=== PATIENT | female | born 1940 | race Caucasian/White ===

== ENCOUNTER 2017-11-30 15:24 | Emergency (ER) | payer MEDICARE ==
--- NOTE | 2017-11-30 15:56 | ERNOTE ---
Medical Problem HPI - Narrative Date of Service: 11/30/17 - General Chief Complaint: Fever Time Seen by Provider: 11/30/17 15:39 Source: patient Exam Limitations: no limitations - Immun/Allergies/Home Medications Immunizations: IMMUNIZATION HX History of Influenza Vaccine Yes Allergies/Adverse Reactions: Allergies cortisone [Cortisone] Allergy (Verified 11/30/17 15:37) Hives hydrocodone Allergy (Verified 11/30/17 15:37) oxycodone [Oxycodone] Allergy (Verified 11/30/17 15:37) Home Medications: HOME MEDICATIONS Aspirin [Aspirin Chewable] 81 mg PO DAILY 11/08/14 [Last Taken Unknown] Esomeprazole Magnesium [Nexium] 40 mg PO DAILY 11/08/14 [Last Taken Unknown] Hydrochlorothiazide [Microzide] 12.5 mg PO DAILY 11/08/14 [Last Taken Unknown] Rosuvastatin Calcium [Crestor] 10 mg PO DAILY 11/08/14 [Last Taken Unknown] clonazePAM [Klonopin] 0.5 mg PO DAILY 11/08/14 [Last Taken Unknown] metFORMIN HCL [Glumetza] 1,000 mg PO BID 11/08/14 [Last Taken Unknown] traMADol HCL [Ultram] 50 mg PO QID PRN 11/08/14 [Last Taken Unknown] Albuterol Sulfate [Proair Hfa] 1 - 2 puff IH Q4H PRN #1 inhaler 11/30/17 [Last Taken Unknown] Benzonatate [Tessalon] 200 mg PO TID PRN #30 cap 11/30/17 [Last Taken Unknown] - History of Present History Narrative: Pt is a 76 year old female who presents for a sore throat that started around [place] and has progressively gotten worse. She states on Saturday she developed a fever (~100*F-101*F) which she has been treating with ASA and Brianna- Mcdonald with minimal relief of symptoms. She denies any n/v/d, nasal discharge, ear pain, malaise, CP, or SOB. States that she does have a cough, which is worse at night, however no sputum production. She has been in the hospital visiting other people and last week in the ER with a relative, so she has been around sick contacts, however no confirmed strep or flu cases. Date (Duration): 11/11/17 Timing: getting worse Severity: mild Review of Systems - Review of Systems Constitutional: Present: fever, chills, fatigue. Absent: malaise EYE: Absent: eye discharge ENT: Present: nose congestion, sore throat. Absent: ear pain, ear discharge, nose pain, nasal drainage, throat swelling Respiratory: Present: cough, wheezing. Absent: shortness of breath Cardiology: Absent: chest pain, palpitations, syncope, edema Gastrointestinal/Abdominal: Absent: nausea, vomiting, diarrhea Genitourinary: Absent: frequency, pain, dysuria Musculoskeletal: Absent: muscle stiffness, neck pain, joint pain Skin: Present: no symptoms reported Neurological: Present: no symptoms reported Endocrine: Present: no symptoms reported Hematologic/Lymphatic: Present: no symptoms reported - Patient's Past Medical History Patient History - Medical: Anxiety, Diabetes Type 2, GERD Patient History - Cardiac/Respiratory: Hypertension, Hyperlipidemia Patient History - Cancer: Lymphoma Patient History - Surgical Procedures: Appendectomy, Cholecystectomy, Hysterectomy, Total Knee Replacement, T & A Patient History - Other: None - Social History Living Situations: home Abuse History: No History of abuse Psych History: Hx of Anxiety Alcohol Use: none Drug Use: none - Immunizations History of Influenza Vaccine: Yes Physical Exam - Physical Exam General Appearance: Present: wd/wn, alert, no apparent distress Ears, Nose, Throat: Present: normal ENT inspection, pharyngeal erythema. Absent : pharyngeal swelling, tonsillar swelling, dry mucous membranes Neck: Present: nontender. Absent: lymphadenopathy (R), lymphadenopathy (L) Respiratory: Present: no respiratory distress, no accessory muscle use, chest nontender, decreased breath sounds, wheezing. Absent: lungs clear Cardiovascular/Chest: Present: tachycardia Peripheral Pulses: N=norm/S=strong/W=weak/B=bound/A=absent: Dorsalis-pedis (R): Normal, Dorsalis-pedis (L): Normal Extremity Exam: Present: normal inspection Neurological Exam: Present: alert, oriented, normal mood/affect, no motor/ sensory deficits Skin Exam: Present: normal color, warm/dry ED Progress - Results and Orders Patient's Lab Results:: I have reviewed the patient's lab results. - Vital Signs Patient's Vital Signs:: I have reviewed the patient's vital signs. Vital Signs: Vital Signs 11/30/17 15:29 Temperature 36.0 C L Pulse Rate 107 H Respiratory 12 Rate Blood Pressure 118/50 O2 Sat by Pulse 94 Oximetry - X-Ray X-Ray #1 X-Ray: chest Interpretation: Interp. by me, Reviewed by me X-ray Comments: increased prominence of bronchial trees consistent with acute vs chronic bronchitis - Progress/Reassessment Chief Complaint: Sore Throat Progress:: Improved Departure Clinical Impression: Bronchitis, Cough, Sore throat - Departure Disposition: Home self-care Condition: Good Instructions: Acute Bronchitis, [id number] Additional Instructions: Your xray results does not show any infection. As discussed your strep and flu swabs were negative. Minimize sick contact exposure, maintain good hand hygiene. Increase fluid intake Can take Mucinex as needed to break up chest congestion Can take Iburprofen at night (up to 600mg) to assist with sleeping Try hot tea and honey, cough drops, or salt gargles to assist with sore throat Follow up with PCP if symptoms do not improve or worsen. Referrals: Camelia Perez MD [Primary Care Provider] - Prescriptions: Albuterol Sulfate [Proair Hfa] 1 - 2 puff IH Q4H PRN #1 inhaler PRN Reason: Shortness Of Breath Benzonatate [Tessalon] 200 mg PO TID PRN #30 cap PRN Reason: Croup
[2017-11-30 16:22] VITALS: BP 120/51
== END 2017-11-30 16:31 | disposition home or self-care (01) ==
LOC: ER 15:24
DX: J40 Bronchitis, not specified as acute or chronic (principal); R05 Cough; J02.9 Acute pharyngitis, unspecified; E11.9 Type 2 diabetes mellitus without complications; K21.9 Gastro-esophageal reflux disease without esophagitis; E78.5 Hyperlipidemia, unspecified; I10 Essential (primary) hypertension; F41.9 Anxiety disorder, unspecified; Z85.72 Personal history of non-Hodgkin lymphomas

== ENCOUNTER 2017-12-07 14:59 | Observation (INO) | payer MEDICARE ==
[2017-12-07] MEDS ORDERED: ALBUTEROL SULFATE/IPRATROPIUM 3 ML NEBU IH ONE ×3 (15:28→17:55)
[2017-12-07] MEDS ORDERED: METHYLPREDNISOLONE SOD SUCC/PF 40 MG/ML VIAL IM ONE (15:28)
[2017-12-07] MEDS ORDERED: METHYLPREDNISOLONE SOD SUCC/PF 40 MG/ML VIAL ONE (15:38)
[2017-12-07 15:43] LABS: Hematocrit 34.9 % (37.0-47.0); Hemoglobin 11.1 gm/dL (12.5-16.0); Mean Corpuscular Hemoglobin 25.8 pg (27-31); Mean Corpuscular Hgb Conc 31.8 g/dl (32-36); Mean Platelet Volume 8.8 fl (6.0-9.5); Neutrophil # 15.2 K/mm3 (1.3-6.0); Neutrophil % 84.8 % (42-75.0); Platelet Count 540 K/mm3 (150-450); Red Blood Count 4.31 M/mm3 (4.2-5.4); Red Cell Distribution Width 14.1 % (11.5-14.0); White Blood Count 17.9 K/mm3 (4.0-10.5)
[2017-12-07 16:02] LABS: Albumin * 2.9 gm/dl (3.4-5.0); Anion Gap 13.6 mmol/L (6.8-13.8); BUN/Creatinine Ratio 21.7 (9.0-21.6); Bilirubin, Total 0.3 mg/dL (0.0-1.1); Ca. Corrected For Albumin 10.5 mg/dL (8.4-10.2); Calcium * 9.9 mg/dL (7.9-10.9); Carbon Dioxide 29.4 mmol/L (24-32.6); Total Protein 7.2 gm/dL (6.2-8.2)
--- NOTE | 2017-12-07 16:04 | ERNOTE ---
Medical Problem HPI - Narrative Date of Service: 12/07/17 - General Chief Complaint: Fever Time Seen by Provider: 12/07/17 15:13 Source: patient Exam Limitations: no limitations - Immun/Allergies/Home Medications Immunizations: IMMUNIZATION HX History of Influenza Vaccine Yes Allergies/Adverse Reactions: Allergies cortisone [Cortisone] Allergy (Verified 12/07/17 15:11) Hives hydrocodone Allergy (Verified 12/07/17 15:11) oxycodone [Oxycodone] Allergy (Verified 12/07/17 15:11) Home Medications: HOME MEDICATIONS Aspirin [Aspirin Chewable] 81 mg PO DAILY 11/08/14 [Last Taken Unknown] Esomeprazole Magnesium [Nexium] 40 mg PO DAILY 11/08/14 [Last Taken Unknown] Hydrochlorothiazide [Microzide] 12.5 mg PO DAILY 11/08/14 [Last Taken Unknown] Rosuvastatin Calcium [Crestor] 10 mg PO DAILY 11/08/14 [Last Taken Unknown] clonazePAM [Klonopin] 0.5 mg PO DAILY 11/08/14 [Last Taken Unknown] metFORMIN HCL [Glumetza] 1,000 mg PO BID 11/08/14 [Last Taken Unknown] traMADol HCL [Ultram] 50 mg PO QID PRN 11/08/14 [Last Taken Unknown] Albuterol Sulfate [Proair Hfa] 1 - 2 puff IH Q4H PRN #1 inhaler 11/30/17 [Last Taken Unknown] Benzonatate [Tessalon] 200 mg PO TID PRN #30 cap 11/30/17 [Last Taken Unknown] - History of Present History Narrative: Pt. comes in with c/o increaseing fever, cough, chestcongestion, malaise, and fatigue for a week and a half. Pt. was seen here a week ago and started on tessalon and told to take 600mg of Ibuprofen every 4 hours Pt. was also given albuterol inhaler. Pt. then called her PCP four days ago and was started on Zpak without any relief in symptoms. Pt. denies any CP, NVD, alleviating factors but states that lying flat and cold air exacerbated the symptoms. Timing: getting worse Severity: moderate Modifying Factors - (Improves): Present: other - denies Modifying Factors - (Worsens): Present: cold therapy Review of Systems - Review of Systems Constitutional: Present: fever, chills, weakness, fatigue, malaise EYE: Present: no symptoms reported ENT: Present: no symptoms reported Respiratory: Present: shortness of breath, cough, orthopnea, wheezing Cardiology: Present: no symptoms reported. Absent: chest pain, palpitations, edema Gastrointestinal/Abdominal: Present: no symptoms reported. Absent: nausea, vomiting, diarrhea, abdominal pain Genitourinary: Present: no symptoms reported. Absent: frequency, decreased urinary output Musculoskeletal: Present: no symptoms reported. Absent: back pain, neck pain, joint pain Neurological: Present: no symptoms reported. Absent: headache, dizziness/light- headedness, numbness, tingling All Other Systems: All systems neg except as marked - Patient's Past Medical History Patient History - Medical: Anxiety, Diabetes Type 2, GERD Patient History - Cardiac/Respiratory: Hypertension, Hyperlipidemia Patient History - Cancer: Lymphoma Patient History - Surgical Procedures: Appendectomy, Cholecystectomy, Hysterectomy, Total Knee Replacement, T & A Patient History - Other: None LMP (females 10-50): Menopausal - Social History Living Situations: home Abuse History: No History of abuse Psych History: Hx of Anxiety - Immunizations History of Influenza Vaccine: Yes Physical Exam - Physical Exam General Appearance: Present: wd/wn, alert, no apparent distress Head Exam: Present: normal inspection, no evidence of injury Eye Exam: Normal inspection: bilateral Ears, Nose, Throat: Present: nasal congestion, normal pharynx Neck: Present: normal inspection, nontender, supple, full range of motion. Absent: lymphadenopathy (R), lymphadenopathy (L) Respiratory: Present: no respiratory distress, normal breath sounds, no accessory muscle use, chest nontender, lungs clear. Absent: rales, rhonchi, wheezing Cardiovascular/Chest: Present: regular rate, rhythm, no murmur, normal peripheral pulses Gastrointestinal/Abdominal: Present: normal bowel sounds, nontender, nondistended, soft, no organomegaly Back Exam: Present: normal inspection, normal range of motion, no CVA tenderness , no vertebral tenderness Extremity Exam: Present: normal inspection, non-tender, normal range of motion, no edema Neurological Exam: Present: alert, oriented, normal mood/affect, no motor/ sensory deficits, emergency response coordinator II-XII nml as tested, normal cerebellar test Skin Exam: Present: normal color, warm/dry. Absent: pallor, skin rash ED Progress - Date and Time Seen: Date and Time: 12/07/17 17:[address] Gotti and she acceptd pt for admission with orders for duonebs, levaquin and slow cont. IVF. She states that she does not want steroids for pt. - Results and Orders Patient's Lab Results:: I have reviewed the patient's lab results. - Vital Signs Patient's Vital Signs:: I have reviewed the patient's vital signs. Vital Signs: Vital Signs 12/07/17 15:07 Temperature 37.8 C H Pulse Rate 107 H Respiratory 17 Rate Blood Pressure 125/65 O2 Sat by Pulse 93 Oximetry - X-Ray X-Ray #1 X-Ray: chest Interpretation: Reviewed by me X-ray Comments: worsening BLL pneumonia - Progress/Reassessment Chief Complaint: Fever Departure Clinical Impression: Failure of outpatient treatment Pneumonia Qualifiers: Pneumonia type: due to unspecified organism Laterality: bilateral Lung location : lower lobe of lung Qualified Code(s): J18.9 - Pneumonia, unspecified organism - Departure Disposition: [facility] Condition: Fair
[2017-12-07] MEDS ORDERED: ACETAMINOPHEN 325 MG TABLET PO PRN (17:24)
[2017-12-07] MEDS: ALBUTEROL SULFATE/IPRATROPIUM 3 ML NEBU IH SCH ×2 (18:20→23:13)
[2017-12-07] MEDS: NORMAL SALINE 1,000 ML IV PRN (18:28)
[2017-12-07] MEDS ORDERED: ALBUTEROL SULFATE/IPRATROPIUM 3 ML NEBU IH SCH (19:00)
[2017-12-07] MEDS ORDERED: LEVOFLOXACIN IN DEXTROSE 5 % 750 MG/150 ML BAG IV ONE (19:00)
[2017-12-07 19:02] LABS: Urine Appearance Slightly Cloudy; Urine Bilirubin Negative (NEGATIVE); Urine Blood 10 /ul (NEGATIVE); Urine Color Yellow; Urine Ketone 5 mg/dL (NEGATIVE); Urine Nitrite Negative (NEGATIVE); Urine Protein Negative (NEGATIVE); Urine Specific Gravity 1.015 SP.GR. (1.005-1.010); Urine Urobilinogen Normal (NORMAL)
[2017-12-07 19:03] LABS: Urine Bacteria 3+; Urine RBC 0-5 /hpf (0-5)
[2017-12-07 19:04] LABS: Urine Yeast Few - 1+
--- NOTE | 2017-12-07 20:18 | HP ---
Chief Complaint - Chief Complaint Date of Service: 12/07/17 Time of Service: 20:00 Chief Complaint: wheezing, cough, fever, weakness History of Present Illness: 76 years old female adm to the hospital with reports of weakness,fever, chill, wheezing and a productive cough x 1 week that have worsen. PMH bronchitis, hypertension, hyperlipidemia and diabetes II. pt stated she was seen in the ER a week ago diagnosed with bronchitis, treated with nebs and OTC medications. She was negative for influenza and was using home remedies to help with s/s. On Saturday she called PCP who prescribed Z-pack and she took for 4 days. Despite all her attempts and antbx her s/s persisted so she came to the ER today. IN ER CXR: new right basilar pulmonary opacity stable left lower lobe opacity. Correlates for worsening pneumonia. Temp 37.9, WBC 17.9 she was given Rocephin then switched to Levaquin, plan to continue with antbx , neb treatment and use of I/S. Plan of care discussed with pt she verbalized understanding and agrees. - Patient's Past Medical History Patient History - Medical: Anxiety, Diabetes Type 2, GERD, Obesity Patient History - Cardiac/Respiratory: Hypertension, Hyperlipidemia Patient History - Cancer: Lymphoma, Chemotherapy history Patient History - Surgical Procedures: Appendectomy, Cholecystectomy, Hysterectomy, Total Knee Replacement - left , T & A Patient History - Other: None LMP (females 10-50): Menopausal - Family History Mother Family History - Medical: , Other - parkinson Father Family History - Medical: Family History - Cancer: Bone Brother Family History - Medical: , Renal Failure Sister Family History - Cancer: Liver - Social History Living Situations: spouse Abuse History: No History of abuse Psych History: Hx of Anxiety Smoking Status: Former smoker Have you smoked in the past 12 months: No Do you dip or chew tobacco: No Smoking Stop Date: 11/18/94 Patient requests Smoking Cessation Consult: No Initiate information on Smoking Cessation: No Alcohol Use: none - Immunizations History of Influenza Vaccine: Yes Review Of Systems (GEN) - Review of Systems Generalized/Overall Review: Present: Weakness, Chills, Fever, Malaise EENTM: Present: No Symptoms Reported Respiratory: Present: Cough, Wheezing Cardiac: Present: No Symptoms Reported Abdominal: Present: No Symptoms Reported Genitourinary: Present: No Symptoms Reported Musculoskeletal: Present: No Symptoms Reported Neurological: Present: No Symptoms Reported Skin: Present: No Symptoms Reported Endocrine: Present: No Symptoms Reported Immunizations: IMMUNIZATION HX History of Influenza Vaccine Yes Allergies/Adverse Reactions: Allergies Allergy/AdvReac Type Severity Reaction Status Date / Time cortisone [Cortisone] Allergy Hives Verified 12/07/17 15:11 hydrocodone Allergy Verified 12/07/17 15:11 oxycodone [Oxycodone] Allergy Verified 12/07/17 15:11 Home Medications: HOME MEDICATIONS Aspirin [Aspirin Chewable] 81 mg PO DAILY 11/08/14 [Last Taken Unknown] Esomeprazole Magnesium [Nexium] 40 mg PO DAILY 11/08/14 [Last Taken Unknown] Hydrochlorothiazide [Microzide] 12.5 mg PO BID 11/08/14 [Last Taken Unknown] Rosuvastatin Calcium [Crestor] 10 mg PO DAILY 11/08/14 [Last Taken Unknown] clonazePAM [Klonopin] 0.5 mg PO DAILY 11/08/14 [Last Taken Unknown] metFORMIN HCL [Glumetza] 1,000 mg PO DAILY 11/08/14 [Last Taken Unknown] traMADol HCL [Ultram] 50 mg PO QID PRN 11/08/14 [Last Taken Unknown] Albuterol Sulfate [Proair Hfa] 1 - 2 puff IH Q4H PRN #1 inhaler 11/30/17 [Last Taken Unknown] metFORMIN HCL [Fortamet] 500 mg PO HS 12/07/17 [Last Taken Unknown] Exam - Exam Vital Signs: Vital Signs - Last Taken Temp 37.9 C H 12/07/17 18:08 Pulse 109 H 12/07/17 18:35 Resp 20 12/07/17 18:35 BP 120/77 12/07/17 18:35 Pulse Ox 93 12/07/17 18:35 Constitutional: Present: Alert, Oriented x3, Cooperative, Well developed, Elderly, Obese ENT Exam: Present: hearing grossly normal Eye Exam: bilateral eye: normal inspection Neck: Present: full range of motion Back Exam: Present: normal inspection Breasts: Present: Exam deferred Respiratory: Present: chest non-tender, no respiratory distress, decreased breath sounds, rales, rhonchi, wheezing Cardiovascular/Chest: Present: normal peripheral pulses, no chest tenderness, no edema, no gallop, tachycardia Peripheral Pulses: dorsalis-pedis (R): 2+, dorsalis-pedis (L): 2+ Abdomen: Present: Normal bowel sounds, soft, nontender, nondistended, no rebound tenderness /Rectal: Present: Exam deferred Extremity: Present: normal range of motion, non-tender, normal inspection, no pedal edema, no calf tenderness Skin Exam: Present: normal color, warm/dry Neurologic: Present: oriented x 3 Appearance: Present: appropriate appearance, appropriate insight Thoughts: Present: normal thought pattern Diagnostic Studies: Abnormal Lab Results 12/07/17 Range/Units 18:10 Urine Blood 10 H (NEGATIVE) /ul Ur Leukocyte Esterase 500 H (NEGATIVE) /ul Urine WBC 10-25 H (0-5) /hpf Ur Epithelial Cells >25 H (0-5) /hpf Urine Bacteria 3+ H (NONE) Urine Yeast Few - 1+ H (NONE) Urine Comment Culture ordered L Laboratory Results WBC 17.9 K/mm3 (4.0-10.5) H 12/07/17 15:38 RBC 4.31 M/mm3 (4.2-5.4) 12/07/17 15:38 Hgb 11.1 gm/dL (12.5-16.0) L 12/07/17 15:38 Hct 34.9 % (37.0-47.0) L 12/07/17 15:38 MCV 81.0 fl (78-100) 12/07/17 15:38 MCH 25.8 pg (27-31) L 12/07/17 15:38 MCHC 31.8 g/dl (32-36) L 12/07/17 15:38 RDW 14.1 % (11.5-14.0) H 12/07/17 15:38 Plt Count 540 K/mm3 (150-450) H 12/07/17 15:38 MPV 8.8 fl (6.0-9.5) 12/07/17 15:38 Immature Gran % (Auto) 0.80 % (0.001-0.429) H 12/07/17 15:38 Immature Gran # (Auto) 0.15 K/mm3 (0.000-0.0310) H 12/07/17 15:38 Neutrophils % 84.8 % (42-75.0) H 12/07/17 15:38 Lymphocytes % 4.6 % (20-51) L 12/07/17 15:38 Monocytes % 6.0 % (0.0-9) 12/07/17 15:38 Eosinophils % 3.5 % (0.0-3.0) H 12/07/17 15:38 Basophils % 0.3 % (0.0-1.0) 12/07/17 15:38 Nucleated RBC % 0.0 k/mm3 (0-1) 12/07/17 15:38 Neutrophils # 15.2 K/mm3 (1.3-6.0) H 12/07/17 15:38 Lymphocytes # 0.8 k/mm3 (1.5-3.5) L 12/07/17 15:38 Monocytes # 1.1 k/mm3 (0.0-1.0) H 12/07/17 15:38 Eosinophils # 0.6 k/mm3 (0.0-0.7) 12/07/17 15:38 Absolute Basophils 0.1 k/mm3 (0.0-0.1) 12/07/17 15:38 Sodium 135 mmol/L (132-142) 12/07/17 15:38 Plasma Sodium 135 mmol/L (130-142) 12/07/17 15:38 Potassium 4.0 mmol/L (3.4-4.6) 12/07/17 15:38 Chloride 96 mmol/L (97-106) L 12/07/17 15:38 Carbon Dioxide 29.4 mmol/L (24-32.6) 12/07/17 15:38 Anion Gap 13.6 mmol/L (6.8-13.8) 12/07/17 15:38 BUN 25 mg/dL (3-23) H 12/07/17 15:38 Creatinine 1.15 mg/dL (0.4-1.4) 12/07/17 15:38 Est GFR (Non-Af Amer) 49 mL/min (60-130) L D 12/07/17 15:38 BUN/Creatinine Ratio 21.7 (9.0-21.6) H 12/07/17 15:38 Random Glucose 130 mg/dL (70-110) H 12/07/17 15:38 Lactic Acid, Venous 1.6 mmol/L (0.4-1.9) 12/07/17 16:16 Calcium 9.9 mg/dL (7.9-10.9) 12/07/17 15:38 Calcium Adj for Albumin 10.5 mg/dL (8.4-10.2) H 12/07/17 15:38 Total Bilirubin 0.3 mg/dL (0.0-1.1) 12/07/17 15:38 AST 22 U/L (0-48) 12/07/17 15:38 ALT 23 U/L (19-67) 12/07/17 15:38 Alkaline Phosphatase 118 U/L (50-170) 12/07/17 15:38 B-Natriuretic Peptide 117 pg/mL (5-550) 12/07/17 15:38 Total Protein 7.2 gm/dL (6.2-8.2) 12/07/17 15:38 Albumin 2.9 gm/dl (3.4-5.0) L 12/07/17 15:38 Urine Color Yellow 12/07/17 18:10 Urine Appearance Slightly cloudy 12/07/17 18:10 Urine pH 6.0 pH (5.0-7.0) 12/07/17 18:10 Ur Specific Rufus 1.015 SP.GR. (1.005-1.010) 12/07/17 18:10 Urine Protein Negative mg/dL (NEGATIVE) 12/07/17 18:10 Urine Glucose (UA) Negative mg/dL (NEGATIVE) 12/07/17 18:10 Urine Ketones 5 mg/dL (NEGATIVE) 12/07/17 18:10 Urine Blood 10 /ul (NEGATIVE) H 12/07/17 18:10 Urine Nitrate Negative (NEGATIVE) 12/07/17 18:10 Urine Bilirubin Negative mg/dl (NEGATIVE) 12/07/17 18:10 Urine Urobilinogen Normal EU/dl (NORMAL) 12/07/17 18:10 Ur Leukocyte Esterase 500 /ul (NEGATIVE) H 12/07/17 18:10 Urine RBC 0-5 /hpf (0-5) 12/07/17 18:10 Urine WBC 10-25 /hpf (0-5) H 12/07/17 18:10 Ur Epithelial Cells >25 /hpf (0-5) H 12/07/17 18:10 Urine Bacteria 3+ (NONE) H 12/07/17 18:10 Urine Yeast Few - 1+ (NONE) H 12/07/17 18:10 Urine Comment Culture ordered L 12/07/17 18:10 CXR: new right basilar pulmonary opacity stable left lowr lobe opacity. Correleats for worsening pneumonia. Assessment/Plan - Narrative Narrative: Pneumonia- pt failed out-pt treatment CXR: new right basilar pulmonary opacity stable left lower lobe opacity. Correlates for worsening pneumonia. Continue with IV antbx Levaquin and IVF Encourage use of I/S continue with scheduled neb treatments. Sputum culture pending Diabetes II Accu-check AC+HS and low dose SSI consistent carb diet Monitor BMP in AM Chronic conditions-stable and may resume home dose of medications Hypertension Hyperlipidemia Code status:Full VTE ppx:Ambulate GI ppx:protonix Time 45 minutes and case discussed with DR Gotti - Assessment/Plan (1) Hypertension Problem: Chronic (2) Diabetes Problem: Chronic (3) Hyperlipidemia Problem: Chronic (4) Failure of outpatient treatment Problem: Acute (5) Pneumonia Problem: Acute Qualifiers: Pneumonia type: due to unspecified organism Laterality: bilateral Lung location: lower lobe of lung Qualified Code(s): J18.9 - Pneumonia, unspecified organism (6) Bronchitis Problem: Acute (7) Cough Problem: Acute
[2017-12-07] MEDS: traMADol HCL 50 MG TABLET PO PRN ×2 (21:57→22:25)
[2017-12-07] MEDS ORDERED: metFORMIN HCL 500 MG TABLET PO SCH (22:00)
[2017-12-07] MEDS ORDERED: ALBUTEROL SULFATE 2.5 MG/0.5 ML VIAL.NEB IH PRN (22:00)
[2017-12-07] MEDS: PANTOPRAZOLE SODIUM 40 MG TABLET.EC PO SCH (22:17)
[2017-12-08] MEDS: ALBUTEROL SULFATE/IPRATROPIUM 3 ML NEBU IH SCH ×6 (02:45→22:42)
[2017-12-08 05:56] LABS: Hematocrit 33.4 % (37.0-47.0); Hemoglobin 10.6 gm/dL (12.5-16.0); Mean Cell Volume 81.9 fl (78-100); Mean Corpuscular Hgb Conc 31.7 g/dl (32-36); Mean Platelet Volume 8.7 fl (6.0-9.5); Platelet Count 474 K/mm3 (150-450); Red Blood Count 4.08 M/mm3 (4.2-5.4); Red Cell Distribution Width 14.3 % (11.5-14.0); White Blood Count 15.1 K/mm3 (4.0-10.5)
[2017-12-08 06:29] LABS: Anion Gap 16.2 mmol/L (6.8-13.8); BUN/Creatinine Ratio 24.1 (9.0-21.6); Calcium * 9.5 mg/dL (7.9-10.9); Carbon Dioxide 27.5 mmol/L (24-32.6); Potassium 3.7 mmol/L (3.4-4.6)
[2017-12-08] MEDS: INSULIN LISPRO 100 UNITS/ML VIAL SC SCH ×3 (06:47→16:49)
[2017-12-08] MEDS: PANTOPRAZOLE SODIUM 40 MG TABLET.EC PO SCH (06:49)
[2017-12-08] MEDS ORDERED: PANTOPRAZOLE SODIUM 40 MG TABLET.EC PO SCH (07:00)
[2017-12-08] MEDS: ASPIRIN 81 MG TAB.CHEW PO SCH (08:50)
[2017-12-08] MEDS ORDERED: ROSUVASTATIN CALCIUM 10 MG TABLET PO SCH ×2 (09:00→21:00)
[2017-12-08] MEDS ORDERED: clonazePAM 0.5 MG TABLET PO SCH ×2 (09:00→21:00)
[2017-12-08] MEDS ORDERED: HYDROCHLOROTHIAZIDE 12.5 MG CAPSULE PO SCH (09:00)
[2017-12-08] MEDS: NORMAL SALINE 1,000 ML IV PRN (09:33)
--- NOTE | 2017-12-08 17:20 | PN ---
Subjective - Date and Time Seen Date: 12/08/17 Time: 17:12 Subjective Narrative: C/o productive cough, has occasional wheezing, denies any pleuritic chest pain. Vomited twice due to intense coughing- some relief with neb treatments Objective - Review of Systems Generalized/Overall Review: Denies: Weakness, Chills, Fever Respiratory: Reports: Cough, Shortness of Breath Cardiac: Denies: Chest Pain, Edema Abdominal: Denies: Nausea, Vomiting - Whether this lady Musculoskeletal Complaints: Denies: Joint Pain, Back Pain - Vitals Vitals: Vital Signs Temp 36.5 C 12/08/17 15:57 Pulse 101 H 12/08/17 15:57 Resp 18 12/08/17 15:57 BP 121/54 12/08/17 15:57 Pulse Ox 93 12/08/17 15:57 - Abnormal Lab Findings Abnormal Lab Findings: A Laboratory Tests 12/08/17 05:50 WBC 15.1 H Hgb 10.6 L Hct 33.4 L Plt Count 474 H 12/08/17 05:50 Plasma Sodium 138 Potassium 3.7 Chloride 97 Carbon Dioxide 27.5 BUN 27 H Creatinine 1.12 Est GFR (Non-Af Amer) 50 L Random Glucose 187 H D - Exam Constitutional: Present: Elderly - well nourished, A and O x 3,in NAD ENT Exam: Present: hearing grossly normal, dry mucous membranes Neck: Present: normal inspection, trachea midline Respiratory: Present: no accessory muscle use, decreased breath sounds - bilaterally, crackles, rales - bilaterally. Cardiovascular/Chest: Present: regular rate, rhythm. Absent: tachycardia Abdomen: Present: Normal bowel sounds, soft, nontender, nondistended Skin Exam: Present: warm/dry, pallor Appearance: Present: appropriate appearance, appropriate insight, neat Assessment/Plan Plan Narrative: 1. BILATERAL PNEUMONIA: On levofloxacin 750 mg IV daily followed by 500 mg IV daily. [Given azithromycin as an outpatient]. C ornet Q2H while awake. Urine for Legionella antigen and pneumococcal antigen pending. WBC 17.9 K on admission-continue to follow. 2. BRONCHOSPASM: DuoNeb 4 times a day and Pulmicort 0.5 IH twice a day. 3. DEHYDRATION: BUN/CR 25/1.12 on admission. Given IV fluids in the form of normal saline at 75 mL an hour. Poor intake increased to 125 mL an hour. 4. CHRONIC MEDICAL PROBLEMS: T2DM, HLD, GERD, reviewed and stable. 5. CODE STATUS: Full code DVT prophylaxis: Patient ambulatory
[2017-12-08] MEDS ORDERED: ALBUTEROL SULFATE 2.5 MG/0.5 ML VIAL.NEB IH PRN (17:23)
[2017-12-08] MEDS ORDERED: LEVOFLOXACIN IN DEXTROSE 5 % 500 MG/100 ML BAG IV SCH (18:00)
[2017-12-08] MEDS: BUDESONIDE 0.5 MG/2 ML VIAL.NEB IH SCH (18:17)
[2017-12-08] MEDS: POTASSIUM CHLORIDE 20 MEQ in NORMAL SALINE 1,000 ML IV SCH (20:23)
[2017-12-08] MEDS: traMADol HCL 50 MG TABLET PO PRN (21:24)
[2017-12-09] MEDS: ALBUTEROL SULFATE/IPRATROPIUM 3 ML NEBU IH SCH ×2 (02:26→06:17)
[2017-12-09] MEDS: POTASSIUM CHLORIDE 20 MEQ in NORMAL SALINE 1,000 ML IV SCH (04:33)
[2017-12-09 05:51] LABS: Hematocrit 30.5 % (37.0-47.0); Hemoglobin 9.5 gm/dL (12.5-16.0); Mean Cell Volume 83.1 fl (78-100); Mean Corpuscular Hemoglobin 25.9 pg (27-31); Mean Corpuscular Hgb Conc 31.1 g/dl (32-36); Mean Platelet Volume 10.4 fl (6.0-9.5); Neutrophil # 11.9 K/mm3 (1.3-6.0); Neutrophil % 83.8 % (42-75.0); Platelet Count 328 K/mm3 (150-450); Red Blood Count 3.67 M/mm3 (4.2-5.4); Red Cell Distribution Width 14.6 % (11.5-14.0); White Blood Count 14.2 K/mm3 (4.0-10.5)
[2017-12-09 06:17] LABS: Albumin * 2.3 gm/dl (3.4-5.0); Anion Gap 13.6 mmol/L (6.8-13.8); BUN/Creatinine Ratio 25.9 (9.0-21.6); Bilirubin, Total 0.1 mg/dL (0.0-1.1); Ca. Corrected For Albumin 9.8 mg/dL (8.4-10.2); Calcium * 8.8 mg/dL (7.9-10.9); Carbon Dioxide 24.3 mmol/L (24-32.6); Potassium 3.9 mmol/L (3.4-4.6); Total Protein 5.6 gm/dL (6.2-8.2)
[2017-12-09] MEDS: BUDESONIDE 0.5 MG/2 ML VIAL.NEB IH SCH (06:17)
[2017-12-09] MEDS: PANTOPRAZOLE SODIUM 40 MG TABLET.EC PO SCH (06:59)
[2017-12-09] MEDS ORDERED: INSULIN LISPRO 100 UNITS/ML VIAL SC SCH (07:00)
[2017-12-09 07:13] VITALS: BP 137/71
--- NOTE | 2017-12-09 08:30 | DS ---
(1) Failure of outpatient treatment Problem: Acute (2) Pneumonia Problem: Acute Qualifiers: Pneumonia type: due to unspecified organism Laterality: bilateral (3) Diabetes Problem: Chronic Qualifiers: Diabetes mellitus type: type 2 (4) Hyperlipidemia Problem: Chronic Qualifiers: Hyperlipidemia type: mixed hyperlipidemia Qualified Code(s): E78.2 - Mixed hyperlipidemia (5) Hypertension Problem: Chronic Qualifiers: Hypertension type: essential hypertension Qualified Code(s): I10 - Essential (primary) hypertension Description of Stay: Ana Curtis, 76 years old female adm to the hospital on 12/07/2017 with reports of weakness,fever, chill, wheezing and a productive cough x 1 week that have worsen. PMH bronchitis, hypertension, hyperlipidemia and diabetes II. pt stated she was seen in the ER a week ago diagnosed with bronchitis, treated with nebs and OTC medications. She was negative for influenza and was using home remedies to help with s/s. On Saturday she called PCP who prescribed Z-pack and she took for 4 days. Despite all her attempts and antbx her s/s persisted so she came to the ER today. IN ER CXR: new right basilar pulmonary opacity stable left lower lobe opacity. Correlates for worsening pneumonia. Temp 37.9, WBC 17.9 she was given Rocephin then switched to Levaquin, plan to continue with antbx , neb treatment and use of I/S. Her WBC is down to 14 from 17. She is adamant to go home today. She was told that she failed outpatient oral antibiotics and her CXR showed new opacity. She says she is feeling better and still wants to go home. She will be discharged on oral levaquin and AMA. She is OK with that. Procedures Performed: none Discharge Disposition: Home self care Disposition: Home self-care Condition: Fair Discharge Activity: Activity as tolerated Discharge Diet: Consistent carbs Referrals: Camelia Perez MD [Primary Care Provider] - Additional Patient Instructions (free text): Follow up with PCP in 1 week. Prescriptions (Any new or edited meds): Acetaminophen [Tylenol] 650 mg PO Q4H PRN #30 tablet PRN Reason: Pain Budesonide [Pulmicort Respules] 0.5 mg IH BIDRT #1 vial.neb Levofloxacin [Levaquin] 750 mg PO DAILY #7 tablet Complete Home Medications List: Complete Home Medication List: Aspirin [Aspirin Chewable] 81 mg PO DAILY 11/08/14 Esomeprazole Magnesium [Nexium] 40 mg PO DAILY 11/08/14 Hydrochlorothiazide [Microzide] 12.5 mg PO BID 11/08/14 Rosuvastatin Calcium [Crestor] 10 mg PO DAILY 11/08/14 clonazePAM [Klonopin] 0.5 mg PO HS 11/08/14 metFORMIN HCL [Glumetza] 1,000 mg PO DAILY 11/08/14 traMADol HCL [Ultram] 50 mg PO QID PRN 11/08/14 Albuterol Sulfate [Proair Hfa] 1 - 2 puff IH Q4H PRN #1 inhaler 11/30/17 metFORMIN HCL [Fortamet] 500 mg PO HS 12/07/17 Acetaminophen [Tylenol] 650 mg PO Q4H PRN #30 tablet 12/09/17 Budesonide [Pulmicort Respules] 0.5 mg IH BIDRT #1 vial.neb 12/09/17 Levofloxacin [Levaquin] 750 mg PO DAILY #7 tablet 12/09/17
[2017-12-09] MEDS: ASPIRIN 81 MG TAB.CHEW PO SCH (09:02)
[2017-12-09] MEDS ORDERED: LEVOFLOXACIN IN DEXTROSE 5 % 750 MG/150 ML BAG IV SCH (10:00)
== END 2017-12-09 10:05 | disposition left against medical advice (07) ==
LOC: ER 14:59 → MS 17:12
PROVIDERS: ADMIT Internal Medicine; ATTEND Internal Medicine
DX: J18.9 Pneumonia, unspecified organism (principal); E11.9 Type 2 diabetes mellitus without complications; Z79.84 Long term (current) use of oral hypoglycemic drugs; E78.2 Mixed hyperlipidemia; I10 Essential (primary) hypertension; Z68.25 Body mass index [BMI] 25.0-25.9, adult; Z53.21 Procedure and treatment not carried out due to patient leaving prior to being seen by health care provider
CPT/HCPCS: 36415; 71046; 80048; 80053; 81001; 83605; 83880; 85025; 87040; 87070; 87086; 87449; 94640; 96365; 96366; 96367; 96372; 99285; G0378